=== PATIENT | male | born 1960 | race Caucasian/White ===

== ENCOUNTER 2019-11-20 20:57 | Emergency (ER) | payer MEDICAID ==
[~2019-11-20] VITALS: Ht 177.8 cm; Wt 112.0 kg
[2019-11-20 21:00] VITALS: BP 156/112
[2019-11-20] MEDS ORDERED: CEPH-264 PO (21:41)
[2019-11-20] MEDS ORDERED: TRAM50TA PO (21:41)
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
[2019-11-20] MEDS ORDERED: CEPHALEXIN 250 MG CAPSULE PO ONE (21:45)
[2019-11-20] MEDS ORDERED: traMADol 50 MG TABLET PO ONE (21:45)
== END 2019-11-20 21:48 | disposition home or self-care (01) ==
LOC: ER 20:57
DX: L60.0 Ingrowing nail (principal); E11.9 Type 2 diabetes mellitus without complications; I10 Essential (primary) hypertension
CPT/HCPCS: 99283